=== PATIENT | female | born 1945 | race Caucasian/White ===

== ENCOUNTER 2021-04-03 20:13 | Observation (INO) | payer MEDICARE, SELFPAY ==
[2021-04-03 20:17] VITALS: BP 157/78; PULSE 65; RESP 18; TEMP 36.8; O2SAT 95; BMI 38.2
--- NOTE | 2021-04-03 20:19 | XR_ITS ---
PROCEDURE INFORMATION: Exam: XR Right Femur Exam date and time: 04/03/2021 8:19 PM Age: 75 years old Clinical indication: Injury or trauma; Fall; Blunt trauma; Thigh or upper leg; Right; Injury date: 04/03/2021; Additional info: Fall, hip pain right TECHNIQUE: Imaging protocol: XR Right femur. Views: 2 views. COMPARISON: CR XR HIP RT 2-3V W/PELVIS 04/03/2021 8:37 PM FINDINGS: Bones/joints: There is a nondisplaced lateral oblique fracture of the proximal metaphysis and diaphysis of the right femur. Right femoral head and neck appear intact. There is degenerative changes noted within the knee joint space. Osteopenia of visualized bones is evident. Soft tissues: There is dystrophic calcification noted along the course of the right common and superficial femoral artery and popliteal artery. No overlying soft tissue swelling. IMPRESSION: Nondisplaced lateral oblique fracture of the proximal metaphysis and diaphysis of the right femur.
--- NOTE | 2021-04-03 20:19 | XR_ITS ---
PROCEDURE INFORMATION: Exam: XR Right Hip Exam date and time: 04/03/2021 8:19 PM Age: 75 years old Clinical indication: Injury or trauma; Fall; Blunt trauma (contusions or hematomas); Right; Hip; Injury date: 04/03/2021; Additional info: Fall, hip painright TECHNIQUE: Imaging protocol: XR Right hip. Views: 2 or 3 views hip with pelvis when performed. COMPARISON: CR XR PELVIS 1-2V 04/03/2021 8:34 PM FINDINGS: Bones/joints: There is a nondisplaced fracture of the lateral cortical margin of the proximal metaphysis and diaphysis of the right femur. Right femoral head and neck appear intact. There is degenerative change and narrowing of the right hip joint space. Soft tissues: Dystrophic calcification along the course of the right common femoral artery. IMPRESSION: Nondisplaced fracture of the proximal right femur, as described.
--- NOTE | 2021-04-03 20:19 | XR_ITS ---
PROCEDURE INFORMATION: Exam: XR Pelvis Exam date and time: 04/03/2021 8:19 PM Age: 75 years old Clinical indication: Injury or trauma; Fall; Blunt trauma (contusions or hematomas); Right; Hip; Injury date: 04/03/2021; Additional info: Fall, hip pain right TECHNIQUE: Imaging protocol: XR pelvis. Views: 1 or 2 view. COMPARISON: No relevant prior studies available. FINDINGS: Bones/joints: There is a lucent line projecting within the proximal metaphysis and diaphysis of the right femur, suggesting a nondisplaced fracture. There is narrowing of the hip joint spaces compatible with osteoarthritis. Prominent degenerative changes of the lower lumbar spine are evident. No evidence of pelvic fracture. Soft tissues: Dystrophic calcification within the aorta, iliac, and common femoral arteries. There is a clip identified within the left hemipelvis, etiology unknown. Prominent fecal retention noted within the right colon. IMPRESSION: Findings suggest the presence of a nondisplaced fracture of the proximal metaphysis and diaphysis of the right femur.
--- NOTE | 2021-04-03 20:20 | HMH.EDGENADL ---
ED Disposition Clinical Impression: Right femoral fracture Qualifiers: Encounter type: initial encounter Femur location: shaft Fracture type: closed Fracture morphology: transverse Fracture alignment: nondisplaced Qualified Code(s): S72.324A - Nondisplaced transverse fracture of shaft of right femur, initial encounter for closed fracture Disposition: Admitted As Inpatient Condition on Discharge: Fair Time of Disposition: 23:00 - Critical Care Critical Care Time: No Attestation: On , the high probability of a clinically significant, sudden or life threatening deterioration of the following system(s) required my full and direct attention, intervention and personal management. The time I documented below is in addition to time spent performing reported procedures but includes the following listed in this critical care notation. Medical Decision Making - Medical Records Medical records reviewed: Yes: I reviewed the patient's medical records. - [place] Inquiry Pt receiving controlled substance: No Vital Signs: 04/03/21 20:17 04/03/21 21:30 04/04/21 00:38 Temperature 98.2 F 98.2 F Temperature Source Oral Oral Pulse Rate 65 75 Pulse Rate [Left] 65 Respiratory Rate 18 18 18 Blood Pressure 135/58 L 132/75 Blood Pressure [Right Arm] 157/78 H Blood Pressure Mean 83 Blood Pressure Mean [Right Arm] 104 Blood Pressure Source Automatic Cuff Blood Pressure Position Sitting 02 Sat by Pulse Oximetry 95 89 L Oxygen Delivery Method Room Air Room Air - Lab Data Lab Results 04/03/21 23:24: WBC 10.9 H, RBC 4.47, Hgb 13.1, Hct 41.9, MCV 93.7, MCH 29.2, MCHC 31.2 L, RDW 14.5, Plt Count 173, MPV 9.4, Neut % (Auto) 74.3, Lymph % (Auto) 19.1, [place] % (Auto) 5.6, Eos % (Auto) 0.6, Baso % (Auto) 0.5, Neut # (Auto) 8.1 H, Lymph # (Auto) 2.1, [place] # (Auto) 0.6, Eos # (Auto) 0.1, Baso # (Auto) 0.1 04/03/21 23:24: PT 10.7, INR 0.94, APTT 28.7 04/03/21 23:24: Sodium 139, Potassium 4.0, Chloride 103, Carbon Dioxide 30, Anion Gap 10.0, BUN 25 H, Creatinine 1.60 H, Estimated Creat Clear 51, Estimated GFR 32 L, Est GFR ( Amer) 38 L, Glucose 99, Calcium 8.5, Total Bilirubin 0.3, AST 26, ALT 19, Alkaline Phosphatase 115, Total Protein 6.7, Albumin 3.7, Globulin 3.0, Albumin/Globulin Ratio 1.2 04/03/21 23:24: SARS-CoV-2 (PCR) Not detected, Influenza A Untype (PCR) Not detected, Influenza Type B (PCR) Not detected Result diagrams: 04/03/21 23:24 04/03/21 23:24 Orders (Tests/Meds): ED MEDICATIONS Generic Name Dose Route Start Last Admin Trade Name Freq PRN Reason Stop Dose Admin Fentanyl Citrate 25 mcg 04/04/21 00:41 Fentanyl 100mcg/2ml Vial IV 04/04/21 00:42 ONCE ONE Methocarbamol 500 mg 04/04/21 22:45 Methocarbamol 500mg Tablet PO 04/04/21 22:46 ONCE ONE Discontinued Medications Generic Name Dose Route Start Last Admin Trade Name Freq PRN Reason Stop Dose Admin Fentanyl Citrate 50 mcg 04/03/21 21:05 04/03/21 21:08 Fentanyl 250mcg/5ml Vial IV 04/03/21 21:06 50 mcg ONCE ONE Administration Fentanyl Citrate 25 mcg 04/03/21 22:52 04/03/21 22:53 Fentanyl 250mcg/5ml Vial IV 04/03/21 22:53 25 mcg ONCE ONE Administration Methocarbamol 500 mg 04/04/21 22:45 Methocarbamol 500mg Tablet PO 04/04/21 22:46 ONCE ONE Ondansetron HCl 4 mg 04/03/21 21:06 04/03/21 21:08 Ondansetron 4mg/2ml Vial IV 04/03/21 21:07 4 mg ONCE ONE Administration ORDERS Category Date Time Status ECG Request by /Nse Stat Y 04/03/21 22:24 Stop Req Medical Decision Narrative: In summary this is a 75-year-old female presenting to the emergency department with right hip pain after a fall. Patient clinically stable on arrival. Vital signs within normal limits. She is conversational. Her pain is worse when she tries to move. Concern for right hip fracture, pelvic fracture, femur fracture. Will obtain x-rays of the pelvis, right hip, right femur. Even 50 mcg of fe
[2021-04-03 21:30] VITALS: BP 135/58; PULSE 65; RESP 18; O2SAT 89
--- NOTE | 2021-04-03 22:24 | XR_ITS ---
PROCEDURE INFORMATION: Exam: XR Chest Exam date and time: 04/03/2021 10:24 PM Age: 75 years old Clinical indication: Injury or trauma; Fall; Sprain or strain; Injury date: 04/03/2021; Additional info: Fall FX hip PT to be admitted to hospital possible hip surgery TECHNIQUE: Imaging protocol: XR of the chest. Views: 1 view. COMPARISON: No relevant prior studies available. FINDINGS: Limited inspiration and penetration of the chest with obese body habitus. Lordotic projection presented. Lungs: Chronic parenchymal changes identified. No consolidation. Pleural spaces: Unremarkable. No pleural effusion. No pneumothorax. Heart/Mediastinum: Unremarkable. No cardiomegaly. Bones/joints: Unremarkable. IMPRESSION: No acute findings.
--- NOTE | 2021-04-03 22:28 | CT_ITS ---
PROCEDURE INFORMATION: Exam: CT Right Lower Extremity Without Contrast; Thigh Exam date and time: 04/03/2021 10:28 PM Age: 75 years old Clinical indication: Injury or trauma; Fall; Blunt trauma; Thigh or upper leg; Right; Injury date: 04/03/2021; Additional info: Fall, femur fracture TECHNIQUE: Imaging protocol: CT of the Right lower extremity without contrast was performed. Exam focused on the thigh. 3D rendering (Not supervised by radiologist): MIP and/or 3D reconstructed images were created by the technologist. Radiation optimization: All CT scans at this facility use at least one of these dose optimization techniques: automated exposure control; mA and/or kV adjustment per patient size (includes targeted exams where dose is matched to clinical indication); or iterative reconstruction. COMPARISON: CR XR FEMUR RT 2V 04/03/2021 8:38 PM FINDINGS: Bones/joints: There is an incomplete nondisplaced fracture along the posterior and lateral aspect of the cortex of the proximal metaphysis and diaphysis of the right femur. Anterior and medial cortex remains intact. No evidence of femoral neck fracture. The femoral head appears unremarkable. Soft tissues: Overlying musculature and subcutaneous soft tissues are unremarkable. IMPRESSION: There is an incomplete nondisplaced fracture along the posterolateral aspect of the cortex of the proximal metaphysis and diaphysis of the right femur. No overlying soft tissue abnormality.
--- NOTE | 2021-04-03 22:38 | PC.NURSE ---
spoke with dr hawk and dr horner for admit. both agree. brother updated and allowed to come see patient in room. call placed to retail warehouse associate for bed assignment.
--- NOTE | 2021-04-03 23:18 | PC.NURSE ---
pt return from ct via stretcher and tech
[2021-04-03 23:38] LABS: Coronavirus 19, PCR Not Detected (NotDetected); Influenza A, PCR Not Detected (NotDetected); Influenza B, PCR Not Detected (NotDetected)
[2021-04-03 23:42] LABS: Basophils # 0.1 K/mm3 (0-0.2); Basophils % 0.5 % (0.1-2.0); Eosinophils # 0.1 K/mm3 (0.0-0.4); Eosinophils % 0.6 % (0.1-12.0); Hematocrit 41.9 % (37.0-47.0); Hemoglobin 13.1 g/dL (12.2-16.2); Lymphocytes # 2.1 K/mm3 (0.7-4.5); Lymphocytes % 19.1 % (10-50); Mean Corpuscular HGB Conc 31.2 g/dL (31.8-35.4); Mean Corpuscular Hemoglobin 29.2 pg (27.0-31.2); Mean Corpuscular Volume 93.7 fl (81-99); Mean Platelet Volume 9.4 fl (7.4-10.4); Monocytes # 0.6 K/mm3 (0.1-1.0); Monocytes % 5.6 % (1.7-9.3); Neutrophils # 8.1 K/mm3 (1.8-7.8); Neutrophils % 74.3 % (37.0-80.0); Platelet Count 173 K/mm3 (142-424); Red Blood Count 4.47 M/mm3 (4.20-5.40); Red Cell Distribution Width 14.5 % (11.5-17.5); White Blood Count 10.9 K/mm3 (4.8-10.8)
[2021-04-03 23:47] LABS: Alanine Aminotransferase 19 U/L (12-78); Albumin Level 3.7 g/dl (3.5-5.0); Albumin/Globulin Ratio 1.2 (1.1-1.8); Alkaline Phosphatase 115 U/L (38-126); Aspartate Amino Transferase 26 U/L (14-36); Bilirubin,Total 0.3 mg/dl (0.2-1.3); Blood Urea Nitrogen 25 mg/dl (7-17); Calcium 8.5 mg/dl (8.4-10.2); Carbon Dioxide 30 mmol/L (22.0-30.0); Chloride 103 mmol/L (98-107); Creatinine Clearance Estimated 51 mL/min (50-200); Estimated Glomerular Filt Rate 32 ml/min (>60); GFR (African American) 38 ML/MIN (>60); Glucose 99 mg/dl (74-100); Sodium 139 mmol/L (136-145); Total Protein,Serum 6.7 g/dl (6.3-8.2)
[2021-04-03 23:49] LABS: Activated Partial Thrombo Time 28.7 seconds (22.8-30.6); INR 0.94 (0.9-1.1); Prothrombin Time 10.7 seconds (10.1-12.5)
[2021-04-04] VITALS (30 sets, daily range): BP systolic 101–169; BP diastolic 45–97; PULSE 56–87; RESP 14–20; TEMP 36.5–43; O2SAT 90–98; BMI 38.7
--- NOTE | 2021-04-04 00:53 | PC.NURSE ---
PT ARRIVED TO FLOOR @ 0054 VIA STRETCHER
--- NOTE | 2021-04-04 03:16 | PC.NURSE ---
No acute changes t/o shift. Pt has rested well. Remains on 2L NC while sleeping, states that is what she wears at home at night. VSS, call light within reach, will continue to monitor.
--- NOTE | 2021-04-04 06:08 | HMH.ANESCL ---
[facility] Anesthesia Checklist - Patient Identification Patient Identification: Arm Band - Structural Data Admitted From: Inpatient Planned Operative Procedure/s: Gamma nail Consent for Planned Operative Procedure(s) Verified: Yes - NPO Status Verified Time NPO: 00:00 - Airway Assessment C-Spine Mobility Assessed: Yes TMJ Mobility Assessed: Yes Dentition: Edentulous - Neurological Assessment Level of Consciousness: Awake Hx Seizures: No Numbness or tingling in extremities: No - Anesthesia Plan Anesthesia Risk discussed: Yes Anesthesia Plan: Verified ASA Class: III Anesthesia Type: General [facility] History I have reviewed the patient's past medical history: Yes Medical History: Reports:: Cancer (Uterine), Hypertension Denies:: Diabetes Mellitus Type 1, Diabetes Mellitus Type 2 *Have you ever received a pneumonia vaccine?: Yes *Have you received a flu vaccine this season?: No Other Medical History: Reports: Other (Lung mass) Anesthesia experience/problems:: None Laterality Cases: Left: Partial Knee Replacement, Bilateral: Tonsillectomy Other Surgeries: Yes: Cardiac Catheterization, Cholecystectomy, Hysterectomy-Total Amputation: No Fractures: No - *Social History Last grade of school completed: Advanced degree Smoking Status: Current every day smoker Tobacco Type: cigarettes # Packs/Day (cigarettes): 1 Alcohol Intake: never Substance Use Type: denies use *Occupational Status:: retired Housing: house *Travel in the last 8 weeks: None Family Hx:: No significant family history
--- NOTE | 2021-04-04 06:12 | HMH.ORTHOCON ---
*Admission Date: 04/03/21 *Reason for consult:: Right femur fracture *History of present illness: 75-year-old female with no history of antecedent hip pain, fever, constitutional symptoms, or weight change, fell down 2 stairs, complained of right hip pain and difficulty ambulating. Radiographs and subsequent CT scan demonstrated minimally displaced intertrochanteric femur fracture with extension distal to the lesser trochanter and the lateral cortex. There were no lucent lesions apparent on CT scan. She was admitted, made n.p.o. 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 [facility] History Medical History: Reports:: Cancer (Uterine), Hypertension Denies:: Diabetes Mellitus Type 1, Diabetes Mellitus Type 2, Seizures *Have you ever received a pneumonia vaccine?: Yes *Have you received a flu vaccine this season?: No Other Medical History: Reports: Other (Lung mass) Anesthesia experience/problems:: None Laterality Cases: Left: Partial Knee Replacement, Bilateral: Tonsillectomy Other Surgeries: Yes: Cardiac Catheterization, Cholecystectomy, Hysterectomy-Total Amputation: No Fractures: No - *Social History Last grade of school completed: Advanced degree Smoking Status: Current every day smoker Tobacco Type: cigarettes # Packs/Day (cigarettes): 1 Alcohol Intake: never *Occupational Status:: retired Housing: house *Travel in the last 8 weeks: None Family Hx:: No significant family history Review of Systems - Constitutional Denies anorexia, Denies body ache(s), Denies chills, Denies fatigue, Denies fever(s), Denies lack of energy, Denies night sweats, Denies weight gain, Denies weight loss - Eyes Denies loss of vision - ENT Denies abnormal hearing, Denies poor balance, Denies dizziness - *Cardiovascular Denies chest pain, Denies shortness of breath, Denies generalized swelling - *Respiratory Denies chest congestion, Denies cough, Denies shortness of breath - *Gastrointestinal Denies abdominal pain, Denies change in bowel habits - *Genitourinary Denies difficulty urinating, Denies painful urination - *Musculoskeletal Denies abnormal walking Comments: No antecedent right hip pain - *Neurologic Reports abnormal walking, Denies numbness, Denies tingling, Denies weakness Meds Home Medications Medication Instructions Recorded Confirmed Type Amlodipine Besylate [Norvasc 5mg 5 mg PO DAILY 04/03/21 04/03/21 History tablet] Cyanocobalamin (Vitamin B-12) 1,000 mcg IM MONTHLY 04/03/21 04/03/21 History [Cyanocobalamin 1,000mcg/mL Vial] Duloxetine HCl [Cymbalta] 20 mg PO DAILY 04/03/21 04/03/21 History Fluticasone/Vilanterol [Breo 1 puff IH DAILY 04/03/21 04/03/21 History Ellipta 200-25 Mcg INH] Gabapentin [Neurontin 300mg 300 mg PO HS 04/03/21 04/03/21 History capsule] Ipratropium/Albuterol Sulfate 3 ml IH DAILY 04/03/21 04/03/21 History [Iprat-Albut 0.5-3(2.5) mg/3 ml] Montelukast Sodium [Singulair 10mg 10 mg PO PM 04/03/21 04/03/21 History tablet] Oxybutynin Chloride 5 mg PO DAILY 04/03/21 04/03/21 History Tizanidine HCl [Zanaflex 4mg 4 mg PO HS PRN 04/03/21 04/03/21 History tab] bisoproloL fumarate [Bisoprolol 5 mg PO DAILY 04/03/21 04/03/21 History Fumarate] Allergies Allergy/AdvReac Type Severity Reaction Status Date / Time morphine Allergy Severe Hives Verified 04/03/21 20:38 naproxen Allergy Verified 04/04/21 01:45 Penicillins Allergy Verified 04/04/21 01:45 Exam Vital signs and Labs for Last 24 Hours: Temp Pulse Resp BP Pulse Ox 98 F 59 L 19 125/60 96 04/04/21 04:16 04/04/21 04:16 04/04/21 04:16 04/04/21 04:16 04/04/21 04:16 Laboratory Results - last 24 hr 04/03/21 23:24: WBC 10.9 H, RBC 4.47, Hgb 13.1, Hct 41.9, MCV 93.7, MCH 29.
--- NOTE | 2021-04-04 06:20 | PC.NURSE ---
PT'S UPPER AND LOWER DENTURES, PURSE, FOUR RINGS, AND CELL PHONE LOCKED IN NUCLEAR WASTE PROCESS OPERATOR PT'S ROOM AT THIS TIME, WAITING TO BE TAKEN DOWN TO SURGERY.
--- NOTE | 2021-04-04 06:35 | PC.NURSE ---
PT IS LEAVING OFF FLOOR VIA BED WITH OR STAFF @ [id number]
--- NOTE | 2021-04-04 07:44 | PC.NURSE ---
Received report on pt this am at 0700, she is still off floor in surgery at this time.
--- NOTE | 2021-04-04 08:05 | XR_ITS ---
PROCEDURE: XR HIP RT 2-3V W/PELVIS CLINICAL INDICATION: RT HIP NAILING In OR COMPARISON: CT CT FEMUR RT WO CON from 04/03/2021 FINDINGS: Intraoperative fluoroscopic images were submitted from orthopedic internal fixation of right femur fracture. IMPRESSION: Intraoperative fluoroscopic images from orthopedic internal fixation of right femur fracture. Dictated by: Adalgisa Malcolm MD 04/06/2021 08:18 Adalgisa Malcolm MD in OV 04/06/2021 08:18
--- NOTE | 2021-04-04 08:09 | HMH.OPNOTE ---
Date of procedure: 04/04/21 Pre-op Diagnosis:: Right intertrochanteric femur fracture Post-op Diagnosis:: Same Procedure performed:: Right femur cephalomedullary nail fixation [id number] Surgeon:: Caleb Erazo JR, MD Anesthesia: GETA Estimated blood loss (mL): 50 Operative findings:: Appropriate implant placement with no fracture extending past the tip of the nail Operative note:: 75-year-old female sustained a right intertrochanteric femur fracture with lateral cortical extension just distal to the lesser trochanter. She had no fever or constitutional symptoms, no weight loss or weight gain, no antecedent hip pain. Fracture was sustained as a result of a fall downstairs. She did have incidentally noted lung mass which had been monitored and had not changed over the past [address] scan demonstrated minimally displaced fracture, no lucency concerning for pathologic fracture. I had a discussion with her regarding further management, recommended cephalomedullary nail fixation of her right femur fracture. She was amenable with the plan. We discussed the risk and benefits of surgery. Risks included but were not limited to pain, bleeding, infection, damage to adjacent structures, need for further surgery, wound healing complications, loss of limb, . Patient expressed verbal consent and written consent was obtained for the above procedure. Patient was identified in preoperative holding. Operative site was marked in indelible ink. History, physical, consent were reviewed and updated. Patient was surrendered to the anesthesia team, taken to the operative suite, placed supine on a well-padded operative table. Is placed on the fracture table. Anesthesia was induced. The operative extremity was prepped and draped in the usual sterile fashion. The operative team donned sterile gowns and gloves and a timeout was called. All in attendance agreed regarding the patient's identity, procedure, operative site. Weight-based dose of antibiotics was given prior to incision. I percutaneously placed a guidewire, confirm*point, advanced this and overreamed. I placed a guidewire, and with no power to ream, noted that I could easily pass a 13.5 mm reamer down the femoral shaft. I then placed a 200 mm x 12 mm gamma nail into appropriate position, placed a guidewire through the aiming arm into the center center position of the femoral head. I overreamed, placed a 95 mm cephalomedullary screw which I secured with a locking screw proximally. Then using the aiming guide, I placed a single interlocking screw in the static hole distally. I removed the aiming arm and orthogonal fluoroscopic views demonstrated safe intraosseous hardware placement. I sent a specimen to pathology to evaluate for any pathologic changes of the cancellous bone that I obtained with the opening reamer. Wounds were closed in anatomic layers. Sterile dressings applied. Counts were correct x2. There were no apparent complications. I was present and scrubbed for the entire case. Condition: stable Disposition: PACU Complications:: None apparent
--- NOTE | 2021-04-04 08:17 | HMH.ANESI ---
[facility] Anesthesia Record Part I Intake, IV Amount: 800 Estimated blood loss (mL): 50 Urine output (mL): 0 Blood Pressure: 113/60 SaO2: 95 Pulse Rate: 74 Respiratory Rate: 18 Temperature: 98.5 F Patient is:: Drowsy, Oral/Nasal airway Stable to PACU at:: 08:16
--- NOTE | 2021-04-04 08:22 | XR_ITS ---
PROCEDURE INFORMATION: Exam: XR Right Hip Exam date and time: 04/04/2021 8:22 AM Age: 75 years old Clinical indication: Screening exam; Post op pics; Prior surgery; Surgery date: Post-operative (0-2 days); Surgery type: Femur/hip nail; Patient HX: Had a fall and fracture hip yesterday post op films; Additional info: S/P right cephalomedullary nail fixation TECHNIQUE: Imaging protocol: XR Right hip. Views: 2 or 3 views hip with pelvis when performed. COMPARISON: XA XR HIP RT 2-3V W/PELVIS 04/04/2021 5:29 AM FINDINGS: Bones/joints: There is a compression screw in the right hip. Fracture fragments are held in good position. No evidence of complication. Soft tissues: Unremarkable. IMPRESSION: Normal postoperative examination.
--- NOTE | 2021-04-04 09:13 | HMH.PHAVTE ---
[facility] Pharmacy VTE Monitoring - Patient Demographics Allergies/Adverse Reactions: Patient Allergies morphine Allergy (Severe, Verified 04/03/21 20:38) Hives naproxen Allergy (Verified 04/04/21 01:45) Penicillins Allergy (Verified 04/04/21 01:45) Height: 1.65 m Weight: 105.37 kg Patient Problems: Current Active Problems Right femoral fracture (Acute) - VTE Risk Labs: VTE Related Lab Results Hgb 13.1 g/dL (12.2-16.2) 04/03/21 23:24 Hct 41.9 % (37.0-47.0) 04/03/21 23:24 Plt Count 173 K/mm3 (142-424) 04/03/21 23:24 PT 10.7 seconds (10.1-12.5) 04/03/21 23:24 INR 0.94 (0.9-1.1) 04/03/21 23:24 APTT 28.7 seconds (22.8-30.6) 04/03/21 23:24 BUN 25 mg/dl (7-17) H 04/03/21 23:24 Creatinine 1.60 mg/dl (0.52-1.04) H 04/03/21 23:24 Estimated Creat Clear 51 mL/min (50-200) 04/03/21 23:24 Was VTE Risk Assessment Performed: Yes VTE Score: 7 VTE Risk Level: Moderate Risk Clinical Trial Participant: No - Prophylaxis VTE Prophylaxis Ordered?: Yes Types of VTE Prophylaxis: Pharmacological Pharmacologic Type: Enoxaparin
--- NOTE | 2021-04-04 11:32 | PC.NURSE ---
Spoke with Dr. Villalpando when rounding in RE to crackles throughout lung garcia. Decreased IVF's to 50 ml/hr.
--- NOTE | 2021-04-04 12:03 | HMH.HP ---
*Admission Date: 04/03/21 *Chief complaint: femur fracture *History of present illness: Patient is a very pleasant 75-year-old white female who was admitted through the emergency room last night. She was a guest at a wedding, stained a fall with a fracture to her right femur. 75-year-old female with no history of antecedent hip pain, fever, constitutional symptoms, or weight change, fell down 2 stairs, complained of right hip pain and difficulty ambulating. Radiographs and subsequent CT scan demonstrated minimally displaced intertrochanteric femur fracture with extension distal to the lesser trochanter and the lateral cortex. There were no lucent lesions apparent on CT scan. She was admitted, made n.p.o. 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 Patient went to the operating room earlier this morning. Op note is reviewed. Has satisfactory analgesia and normal mentation. 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 She is having no respiratory symptoms, no chest pain. [facility] History Medical History: Reports:: Cancer (Uterine), Hypertension Denies:: Diabetes Mellitus Type 1, Diabetes Mellitus Type 2, Seizures *Have you ever received a pneumonia vaccine?: Yes *Have you received a flu vaccine this season?: No Other Medical History: Reports: Other (Lung mass) Anesthesia experience/problems:: None Laterality Cases: Left: Partial Knee Replacement, Bilateral: Tonsillectomy Other Surgeries: Yes: Cardiac Catheterization, Cholecystectomy, Hysterectomy-Total Amputation: No Fractures: No - *Social History Last grade of school completed: Advanced degree Smoking Status: Current every day smoker Tobacco Type: cigarettes # Packs/Day (cigarettes): 1 Alcohol Intake: never Substance Use Type: denies use *Occupational Status:: retired Housing: house *Travel in the last 8 weeks: None Family Hx:: No significant family history Review of Systems - Constitutional Denies fever(s), Denies weight loss - Eyes Denies change in vision - ENT Denies abnormal hearing - *Cardiovascular Denies chest pain - *Respiratory Denies chest congestion, Denies coughing up blood - *Gastrointestinal Denies abdominal pain - *Genitourinary Denies painful urination - *Musculoskeletal Reports abnormal walking, Reports joint pain - Integumentary/Breasts Denies yellowing of the skin - *Neurologic Denies abnormal walking, Denies abnormal hearing, Denies unsteadiness, Denies dizziness, Denies loss of vision, Denies numbness, Denies tingling, Denies weakness - Psychiatric Denies behavioral changes - Endocrine Denies cold intolerance - Hematologic/Lymphatic Denies easy bleeding, Denies easy bruising - Allergic/Immunologic Denies hives Meds Home Medications Medication Instructions Recorded Confirmed Type Amlodipine Besylate [Norvasc 5mg 5 mg PO DAILY 04/03/21 04/03/21 History tablet] Cyanocobalamin (Vitamin B-12) 1,000 mcg IM MONTHLY 04/03/21 04/03/21 History [Cyanocobalamin 1,000mcg/mL Vial] Duloxetine HCl [Cymbalta] 20 mg PO DAILY 04/03/21 04/03/21 History Gabapentin [Neurontin 300mg 600 mg PO HS 04/03/21 04/04/21 History capsule] Ipratropium/Albuterol Sulfate 3 ml IH QIDP PRN 04/03/21 04/04/21 History [Iprat-Albut 0.5-3(2.5) mg/3 ml] Montelukast Sodium [Singulair 10mg 10 mg PO PM 04/03/21 04/03/21 History tablet] Oxybutynin Chloride 5 mg PO BID 04/03/21 04/04/21 History Tizanidine HCl [Zanaflex 4mg 4 mg PO HS PRN 04/03/21 04/03/21 History tab] bisoproloL fumarate [Bisoprolol 5 mg PO DAILY 04/03/21 04/03/21 History Fumarate] Fluticasone Propion/Salmeterol 1 puff INHALATION BID 04/04/21 04/04/21 History [Fluticasone-Salmetero
--- NOTE | 2021-04-04 12:55 | HMH.PHAINT ---
MEDICATION RECONCILIATION COMPLETE USING EXTERNAL PHARMACY FILL HISTORY AND PATIENT INTERVIEW (VIA NURSE).
--- NOTE | 2021-04-04 13:19 | HMH.PTEV ---
Physical Therapy Evaluation Rehab PT IP Evaluation Start: 04/04/21 08:18 Freq: ONCE Status: Active Protocol: Document 04/04/21 12:57 [email or web address] (Rec: 04/04/21 13:18 [email or web address] [id number]) Subjective/History History History Pt. is a 75 year old female who presents to [facility] w/ c/o acute and constant post- surgical RLE hip P! S/P right femur cephalomedullary nail fixation on 04/04/21. Pt. reports attending a wedding yesterday(04/03/21), and was being assisted up 3 stairs onto a porch where she ended up falling, stated not remembering anything after that. Pt. reports not having much RLE hip P! at rest, but noted symptoms jumped to a 9/ 10 w/ activity. Pt. reports she lives alone in a 1-story home, owns a FWW and a SPC where she would don PRN w/ ambulation. Pt. also reports having a walk-in/shower chair in her home. Pt. also reports having a few steps to enter into her home. However, pt. reports she wouldn't have any assistance @ home because everyone is working. Pt. reported wanting to go to [facility] for rehab. after departing [facility] secondary to having high success w/ her TKA at [facility]. PMH includes Hypertension, history of Uterine Cancer, Cardiac Catheterization, Cholecystectomy, and a Hysterectomy-Total Subjective Subjective Pt. was asleep and supine in hoptal bed w/ brother(Ed) seated in hospital chair upon entry into room. Pt. was left sitting upright in hospital chair w/ call light in reach and nurse in room upon exiting pt.'s room. Pt. reports, it's feeling
--- NOTE | 2021-04-04 13:19 | HMH.PTEV ---
Physical Therapy Evaluation Rehab PT IP Evaluation Start: 04/04/21 08:18 Freq: ONCE Status: Active Protocol: Document 04/04/21 12:57 [email or web address] (Rec: 04/04/21 13:18 [email or web address] [id number]) Subjective/History History History Pt. is a 75 year old female who presents to [facility] w/ c/o acute and constant post- surgical RLE hip P! S/P right femur cephalomedullary nail fixation on 04/04/21. Pt. reports attending a wedding yesterday(04/03/21), and was being assisted up 3 stairs onto a porch where she ended up falling, stated not remembering anything after that. Pt. reports not having much RLE hip P! at rest, but noted symptoms jumped to a 9/ 10 w/ activity. Pt. reports she lives alone in a 1-story home, owns a FWW and a SPC where she would don PRN w/ ambulation. Pt. also reports having a walk-in/shower chair in her home. Pt. also reports having a few steps to enter into her home. However, pt. reports she wouldn't have any assistance @ home because everyone is working. Pt. reported wanting to go to [facility] for rehab. after departing [facility] secondary to having high success w/ her TKA at [facility]. PMH includes Hypertension, history of Uterine Cancer, Cardiac Catheterization, Cholecystectomy, and a Hysterectomy-Total Subjective Subjective Pt. was asleep and supine in hoptal bed w/ brother(Ed) seated in hospital chair upon entry into room. Pt. was left sitting upright in hospital chair w/ call light in reach and nurse in room upon exiting pt.'s room. Pt. reports, it's feeling
--- NOTE | 2021-04-04 20:20 | PC.NURSE ---
Pt has done well postoperatively. She states at this time her pain is 0. Earlier she stated it was with movement. Pt did get up to chair this shift. VSS. Remains on 3 L NC. Did call and get an order for Dilaudid prn per aug and d/c morphine as pt states she has an allergy to it. Pt also refused po pain medication. VSS. CB in reach. Dsg is cdi to R hip with fresh ice pack in place.
[2021-04-05] VITALS (10 sets, daily range): BP systolic 111–129; BP diastolic 40–78; PULSE 60–74; RESP 17–18; TEMP 36.6–37.3; O2SAT 84–96; BMI 39.3
--- NOTE | 2021-04-05 03:23 | PC.NURSE ---
A&OX4. TOLERATING 2LNC WELL. PT HAS HAD NO C/O THUS FAR. ONLY HAS SLIGHT PAIN WHEN TURNING TO GET ON BED [place]. TOLERATES WELL. DRESSING TO R LEG CDI, REINFORCED X1. HAS GOOD APPETITE. VSS WILL CONTINUE TO MONITOR.
--- NOTE | 2021-04-05 05:52 | HMH.ORTHPN ---
Subjective Date: 04/05/21 Time: 05:52 Interval history: Pain improved, no fever, constitutional symptoms, chest pain, shortness of breath. PN: Obj Ex Vital signs: Temp Pulse Resp BP Pulse Ox 98.1 F 69 18 120/53 L 91 L 04/05/21 03:26 04/05/21 03:26 04/05/21 03:26 04/05/21 03:26 04/05/21 03:26 - Constitutional no acute distress - Routine Respiratory Exam Absent: respiratory distress, distant breath sounds - Routine Cardiovascular Exam Present: RRR - Detailed Lower Extremity Exam Hip: Right normal inspection (Dressing clean, dry, intact. Distally neurovascularly intact.) Progress Note: A&P (1) Right femoral fracture Status: Acute Assessment and plan: 75-year-old female status post cephalomedullary nail fixation right intertrochanteric femur fracture. Weight bearing as tolerated right lower extremity. PT/OT. 23 hours antibiotics. DVT prophylaxis: Lovenox 30 mg twice daily for 4 weeks. Okay for discharge from surgical perspective once meets medical criteria. Will follow. (2) COPD (chronic obstructive pulmonary disease) Status: Chronic (3) Lung mass Status: Chronic
--- NOTE | 2021-04-05 06:00 | XR_ITS ---
PROCEDURE INFORMATION: Exam: XR Chest Exam date and time: 04/05/2021 6:00 AM Age: 75 years old Clinical indication: Other: Copd; Additional info: Copd post op hip pinning 04/04/2021 TECHNIQUE: Imaging protocol: XR of the chest. Views: 1 view. COMPARISON: CR XR CHEST PORTABLE 04/03/2021 11:06 PM FINDINGS: Lungs: The lungs are hyperinflated. Pleural spaces: Unremarkable. No pleural effusion. No pneumothorax. Heart/Mediastinum: Unremarkable. No cardiomegaly. Vasculature: Tortuosity of the aorta is seen. Bones/joints: Unremarkable. IMPRESSION: COPD. No acute change.
[2021-04-05 06:39] LABS: Basophils % 0.1 % (0.1-2.0); Hematocrit 35.6 % (37.0-47.0); Hemoglobin 11.3 g/dL (12.2-16.2); Lymphocytes # 1.1 K/mm3 (0.7-4.5); Lymphocytes % 11.7 % (10-50); Mean Corpuscular HGB Conc 31.8 g/dL (31.8-35.4); Mean Corpuscular Hemoglobin 29.6 pg (27.0-31.2); Mean Corpuscular Volume 93.1 fl (81-99); Mean Platelet Volume 9.6 fl (7.4-10.4); Monocytes # 0.6 K/mm3 (0.1-1.0); Monocytes % 6.6 % (1.7-9.3); Neutrophils # 7.7 K/mm3 (1.8-7.8); Neutrophils % 81.5 % (37.0-80.0); Platelet Count 149 K/mm3 (142-424); Red Blood Count 3.82 M/mm3 (4.20-5.40); Red Cell Distribution Width 14.6 % (11.5-17.5); White Blood Count 9.5 K/mm3 (4.8-10.8)
[2021-04-05 06:46] LABS: Chloride 105 mmol/L (98-107); Sodium 139 mmol/L (136-145)
[2021-04-05 06:47] LABS: Potassium 4.4 mmoL/L (3.5-5.1)
[2021-04-05 06:49] LABS: Alanine Aminotransferase 16 U/L (12-78); Albumin Level 3.3 g/dl (3.5-5.0); Albumin/Globulin Ratio 1.3 (1.1-1.8); Alkaline Phosphatase 94 U/L (38-126); Anion Gap 10.4 mEq/L (5-15); Aspartate Amino Transferase 24 U/L (14-36); Bilirubin,Total 0.2 mg/dl (0.2-1.3); Blood Urea Nitrogen 26 mg/dl (7-17); Carbon Dioxide 28 mmol/L (22.0-30.0); Creatinine Clearance Estimated 83 mL/min (50-200); Estimated Glomerular Filt Rate 54 ml/min (>60); GFR (African American) 66 ML/MIN (>60); Globulin 2.6 g/dL (1.3-3.2); Total Protein,Serum 5.9 g/dl (6.3-8.2)
[2021-04-05 06:50] LABS: Calcium 8.6 mg/dl (8.4-10.2); Glucose 124 mg/dl (74-100)
--- NOTE | 2021-04-05 07:07 | P.PN_ITS ---
[facility] Anesthesia Record Part II Discharge Time: 09:23 Destination: Second Floor PACU nurse assessment reviewed?: Yes Patient Condition:: Good Anesthesia Complications:: None Swallowing reflex intact?: Yes Cyanosis?: No Blood Pressure: 121/67 Pulse Rate: 64 Temperature: 99.1 F Mental Status: Alert & Oriented Pain level:: 0 Nausea and/or vomitting:: None Intake, IV Amount: 0
--- NOTE | 2021-04-05 10:12 | SW/DCPLANNER ---
Addendum entered by Jerrica [employer] 04/08/21 09:51: Per Noris Esparza this patient has been accepted for admission today. Noris has stated that patient does NOT require additional COVID testing. Patient is agreeable with plan. Patient will discharge today. Addendum entered by Jerrica [employer] 04/07/21 11:28: Noris Esparza has stated that precert was started yesterday and she is currently waiting for approval. Addendum entered by Jerrica [employer] 04/06/21 12:31: Noris lee/ [facility] has stated that she has started pre-cert on this patient. Addendum entered by Jerrica [employer] 04/05/21 12:27: Noris Esparza is currently reviewing patient information. Original Note: I spoke with this patient during rounds this AM. Patient has expressed an interested in [facility] at time of discharge. Patient information has been faxed to [facility]. I will follow up once patient information is reviewed. Discharge date is unknown at this time.
--- NOTE | 2021-04-05 12:51 | HMH.ACPN2 ---
Internal Medicine - PN: Subj *Date: 04/05/21 *Time: 08:30 Interval history: pt states she had a good night. pt states she is frighten to go home. lives alone Exam Vital signs and Labs for Last 24 Hours: Temp Pulse Resp BP Pulse Ox 98.3 F 74 18 111/40 L 91 L 04/05/21 07:52 04/05/21 07:52 04/05/21 07:52 04/05/21 07:52 04/05/21 07:52 Laboratory Results - last 24 hr 04/05/21 05:25: WBC 9.5, RBC 3.82 L, Hgb 11.3 L, Hct 35.6 L, MCV 93.1, MCH 29.6, MCHC 31.8, RDW 14.6, Plt Count 149, MPV 9.6, Neut % (Auto) 81.5 H, Lymph % (Auto) 11.7, [place] % (Auto) 6.6, Eos % (Auto) 0.0 L, Baso % (Auto) 0.1, Neut # (Auto) 7.7, Lymph # (Auto) 1.1, [place] # (Auto) 0.6, Eos # (Auto) 0.0, Baso # (Auto) 0.0 04/05/21 05:25: Sodium 139, Potassium 4.4, Chloride 105, Carbon Dioxide 28, Anion Gap 10.4, BUN 26 H, Creatinine 1.00 D, Estimated Creat Clear 83, Estimated GFR 54 L, Est GFR ( Amer) 66 D, Glucose 124 H, Calcium 8.6, Total Bilirubin 0.2, AST 24, ALT 16, Alkaline Phosphatase 94, Total Protein 5.9 L, Albumin 3.3 L D, Globulin 2.6, Albumin/Globulin Ratio 1.3 I & O for Last 24 hours: Intake & Output 04/03/21 04/04/21 04/05/21 04/06/21 11:59 11:59 11:59 11:59 Intake Total 800 / 800 960 / 960 Balance 800 / 800 960 / 960 Weight 232 lb 4.817 oz 236 lb - Constitutional no acute distress - *Routine HEENT Exam Head: Present: normocephalic Eye: Present: PERRL ENT: Present: mucous membranes moist - *Routine Neck Exam Present: supple. Absent: lymphadenopathy - *Routine Respiratory Exam Present: CTA bilaterally - *Routine Cardiovascular Exam Present: RRR - *Routine Abdominal Exam Present: soft, normoactive bowel sounds. Absent: tenderness - *Routine Extremities Exam Absent: cyanosis, clubbing, edema - *Routine Skin Exam Present: warm. Absent: rash Comments: dressing in place rt hip - *Routine Neurological Exam Present: alert, oriented X3 Assessment and Plan (1) Right femoral fracture Status: Acute Qualifiers: Encounter type: initial encounter Femur location: shaft Fracture type: closed Fracture morphology: transverse Fracture alignment: nondisplaced Qualified Code(s): S72.324A - Nondisplaced transverse fracture of shaft of right femur, initial encounter for closed fracture Category: Medical Code(s): S72.91XA - Unspecified fracture of right femur, initial encounter for closed fracture (2) COPD (chronic obstructive pulmonary disease) Status: Chronic Category: Medical Code(s): J44.9 - Chronic obstructive pulmonary disease, unspecified (3) Lung mass Status: Chronic Category: Medical Code(s): R91.8 - Other nonspecific abnormal finding of lung field - Assessment and plan all Dx Assessment and Plan for all problems:: rounded with dr hawk all orders per dr hawk pt/ot improved cre pt states she has f/u appointments in [place] on lung mass
--- NOTE | 2021-04-05 14:36 | HMH.OTEV ---
OT Inpatient Evaluation Rehab OT IP Evaluation Start: 04/05/21 10:16 Freq: ONCE Status: Complete Protocol: Document 04/05/21 14:29 [facility] (Rec: 04/05/21 14:35 [facility] [id number]) Rehab OT IP Assessment Subjective History Pt oriented x 3 on arrival. Pt was admitted on 04/03/21 via ED due to fall resulting a femur fx. Pt has a past medical history of Cancer ( Uterine) and Hypertension. Pt required a R femur cephalomedullary nail fixation on 04/04/21. Pt reports prior to her fall she lived at home alone. Pt claims she was independent with all ADLs and IADLs. She did not require AE during ambulation. She wore o2 at night. She still drove. Subjective I need therapy after this. Objective Patient Orientation Person,Place,Birthday Upper Extremity Gross ROM WFL Bed Mobility bed mobility-scooting,bed mobility - supine/sit,bed mobility - rolling Assist Level Minimal x 1 (25% assist) Transfer Training Sit/Stand Transfer Assist Level Minimal x 2 (25% assist) Rehab OT IP prob,goals,plan Problems Date of Evaluation: 04/05/21 OT IP Problems Bed Mobility,Transfers,Gait, Balance,Self care,Safety Rehab Potential Rehab Potential Good Equipment Needs Assistive Devices Rolling / Wheeled Walker Plan OT intervention Plan Bed Mobility,Transfers,Gait, Balance,Self care,Safety, Therapeutic Exercise OT Plan Frequency BID Duration LOS Discharge Goals Bed Mobility Ability Standby Assistance Sit to Stand Chair Transfer Ability Contact Guard/Hand Hold Chair Transfer Ability Contact Guard/Hand Hold Chair Transfer Technique Sit to/from Ambulatory Chair Transfer Assistive Devices Rolling Walker Feeding Ability Assist with Tray Set Up Lower Body Dressing Ability Assistance X1 Upper Body Dressing Ability Standby Assistance Bathing Ability Assistance x1 Performing Toilet Hygiene Ability Assistance X1 Overall Commode/Toilet Transfer Ability Standby Assistance Commode/Toilet Transfer Technique Sit to/from Ambulatory Discharge Plan OT Discharge Plan Pt
[2021-04-06] VITALS (9 sets, daily range): BP systolic 105–132; BP diastolic 51–62; PULSE 65–79; RESP 15–18; TEMP 36.6–37.3; O2SAT 89–100; BMI 39.3
[2021-04-06 06:36] LABS: Chloride 106 mmol/L (98-107)
[2021-04-06 06:37] LABS: Potassium 4.1 mmoL/L (3.5-5.1); Sodium 139 mmol/L (136-145)
[2021-04-06 06:40] LABS: Anion Gap 9.1 mEq/L (5-15); Blood Urea Nitrogen 23 mg/dl (7-17); Calcium 8.6 mg/dl (8.4-10.2); Carbon Dioxide 28 mmol/L (22.0-30.0); Creatinine Clearance Estimated 83 mL/min (50-200); Estimated Glomerular Filt Rate 61 ml/min (>60); GFR (African American) 74 ML/MIN (>60); Glucose 101 mg/dl (74-100)
[2021-04-06 06:41] LABS: Basophils % 0.4 % (0.1-2.0); Eosinophils # 0.2 K/mm3 (0.0-0.4); Eosinophils % 1.9 % (0.1-12.0); Hematocrit 33.1 % (37.0-47.0); Hemoglobin 10.6 g/dL (12.2-16.2); Lymphocytes # 1.8 K/mm3 (0.7-4.5); Lymphocytes % 21.3 % (10-50); Mean Corpuscular Hemoglobin 29.8 pg (27.0-31.2); Mean Corpuscular Volume 93.2 fl (81-99); Mean Platelet Volume 9.3 fl (7.4-10.4); Monocytes # 0.6 K/mm3 (0.1-1.0); Monocytes % 7.5 % (1.7-9.3); Neutrophils # 5.8 K/mm3 (1.8-7.8); Neutrophils % 68.9 % (37.0-80.0); Platelet Count 144 K/mm3 (142-424); Red Blood Count 3.55 M/mm3 (4.20-5.40); White Blood Count 8.5 K/mm3 (4.8-10.8)
--- NOTE | 2021-04-06 13:30 | HMH.ACPN2 ---
Internal Medicine - PN: Subj *Date: 04/07/21 *Time: 05:27 Interval history: pt with doing better- sitting up Exam Vital signs and Labs for Last 24 Hours: Temp Pulse Resp BP Pulse Ox 98.8 F 65 15 112/52 L 96 04/06/21 12:00 04/06/21 12:48 04/06/21 12:00 04/06/21 12:00 04/06/21 12:48 Laboratory Results - last 24 hr 04/06/21 05:48: WBC 8.5, RBC 3.55 L, Hgb 10.6 L, Hct 33.1 L, MCV 93.2, MCH 29.8, MCHC 32.0, RDW 15.0, Plt Count 144, MPV 9.3, Neut % (Auto) 68.9, Lymph % (Auto) 21.3, [place] % (Auto) 7.5, Eos % (Auto) 1.9, Baso % (Auto) 0.4, Neut # (Auto) 5.8, Lymph # (Auto) 1.8, [place] # (Auto) 0.6, Eos # (Auto) 0.2, Baso # (Auto) 0.0 04/06/21 05:48: Sodium 139, Potassium 4.1, Chloride 106, Carbon Dioxide 28, Anion Gap 9.1, BUN 23 H, Creatinine 0.90, Estimated Creat Clear 83, Estimated GFR 61, Est GFR ( Amer) 74, Glucose 101 H, Calcium 8.6 I & O for Last 24 hours: Intake & Output 04/04/21 04/05/21 04/06/21 04/07/21 11:59 11:59 11:59 11:59 Intake Total 800 / 800 960 / 960 1200 / 1200 Balance 800 / 800 960 / 960 1200 / 1200 Weight 232 lb 4.817 oz 236 lb 235 lb 15.831 oz - Constitutional no acute distress, obese - *Routine HEENT Exam Head: Present: normocephalic Eye: Present: EOMI, PERRL ENT: Present: mucous membranes dry - *Routine Neck Exam Present: supple - *Routine Respiratory Exam Present: CTA bilaterally - *Routine Cardiovascular Exam Present: RRR - *Routine Abdominal Exam Present: soft - *Routine Extremities Exam Absent: calf tenderness - *Routine Skin Exam Present: intact - *Routine Neurological Exam Present: alert, CN II-XII intact - Routine Psychiatric Exam Present: cooperative Assessment and Plan (1) Right femoral fracture Status: Acute Qualifiers: Encounter type: initial encounter Femur location: shaft Fracture type: closed Fracture morphology: transverse Fracture alignment: nondisplaced Qualified Code(s): S72.324A - Nondisplaced transverse fracture of shaft of right femur, initial encounter for closed fracture Category: Medical Code(s): S72.91XA - Unspecified fracture of right femur, initial encounter for closed fracture (2) COPD (chronic obstructive pulmonary disease) Status: Chronic Category: Medical Code(s): J44.9 - Chronic obstructive pulmonary disease, unspecified (3) Lung mass Status: Chronic Category: Medical Code(s): R91.8 - Other nonspecific abnormal finding of lung field (4) Obesity (BMI 30-39.9) Status: Acute Category: Medical Code(s): E66.9 - Obesity, unspecified
--- NOTE | 2021-04-06 19:28 | PC.NURSE ---
no acute events throughout shift. RN ambulated patient q4 and with meals. RN had patient ambulate to bedside commode versus bedpan. No further orders at this time for the patient. Will continue to monitor
[2021-04-07] VITALS (10 sets, daily range): BP systolic 94–129; BP diastolic 56–70; PULSE 66–74; RESP 16–22; TEMP 36.6–37.3; O2SAT 88–99; BMI 39.3
--- NOTE | 2021-04-07 12:40 | HMH.ACPN2 ---
Internal Medicine - PN: Subj *Date: 04/07/21 *Time: 08:00 Interval history: pt states she had a good night Exam Vital signs and Labs for Last 24 Hours: Temp Pulse Resp BP Pulse Ox 98.6 F 68 18 94/62 L 93 L 04/07/21 12:00 04/07/21 12:00 04/07/21 12:00 04/07/21 12:00 04/07/21 12:00 I & O for Last 24 hours: Intake & Output 04/05/21 04/06/21 04/07/21 04/08/21 11:59 11:59 11:59 11:59 Intake Total 960 / 960 1200 / 1200 2940 / 2940 Output Total 1650 / 1650 Balance 960 / 960 1200 / 1200 1290 / 1290 Weight 236 lb 235 lb 15.831 oz 236 lb 4.8 oz - Constitutional no acute distress - *Routine HEENT Exam Head: Present: normocephalic Eye: Present: PERRL ENT: Present: mucous membranes moist - *Routine Neck Exam Present: supple. Absent: lymphadenopathy - *Routine Respiratory Exam Present: CTA bilaterally - *Routine Cardiovascular Exam Present: RRR - *Routine Abdominal Exam Present: soft, normoactive bowel sounds. Absent: tenderness - *Routine Extremities Exam Absent: cyanosis, clubbing, edema Comments: dressing c/d/i - *Routine Skin Exam Present: warm. Absent: rash - *Routine Neurological Exam Present: alert, oriented X3 Assessment and Plan (1) Right femoral fracture Status: Acute Qualifiers: Encounter type: initial encounter Femur location: shaft Fracture type: closed Fracture morphology: transverse Fracture alignment: nondisplaced Qualified Code(s): S72.324A - Nondisplaced transverse fracture of shaft of right femur, initial encounter for closed fracture Category: Medical Code(s): S72.91XA - Unspecified fracture of right femur, initial encounter for closed fracture (2) COPD (chronic obstructive pulmonary disease) Status: Chronic Category: Medical Code(s): J44.9 - Chronic obstructive pulmonary disease, unspecified (3) Lung mass Status: Chronic Category: Medical Code(s): R91.8 - Other nonspecific abnormal finding of lung field (4) Obesity (BMI 30-39.9) Status: Acute Category: Medical Code(s): E66.9 - Obesity, unspecified - Assessment and plan all Dx Assessment and Plan for all problems:: rounded with dr gilliam all orders per dr gilliam waiting on bed at [facility]
[2021-04-08] VITALS: O2SAT 93
--- NOTE | 2021-04-08 03:08 | PC.NURSE ---
A&OX4. PT WEARING 2LNC WHILE SLEEPING. PT HAS NOT HAD ANY C/O THUS FAR THIS SHIFT. TURNING WELL IN BED FOR BEDPAN USE. DRESSING TO R HIP CDI. PT SLEEPING MAJORITY OF SHIFT. VSS WILL CONTINUE TO MONITOR.
[2021-04-08 04:00] VITALS: BP 101/50; PULSE 59; RESP 18; TEMP 36.7; O2SAT 93
[2021-04-08 04:58] VITALS: BMI 38.3
[2021-04-08 06:16] LABS: Chloride 102 mmol/L (98-107); Potassium 4.4 mmoL/L (3.5-5.1); Sodium 138 mmol/L (136-145)
[2021-04-08 06:19] LABS: Anion Gap 9.4 mEq/L (5-15); Blood Urea Nitrogen 19 mg/dl (7-17); Calcium 8.4 mg/dl (8.4-10.2); Carbon Dioxide 31 mmol/L (22.0-30.0); Creatinine Clearance Estimated 81 mL/min (50-200); Estimated Glomerular Filt Rate 54 ml/min (>60); GFR (African American) 66 ML/MIN (>60); Glucose 102 mg/dl (74-100)
[2021-04-08 06:20] VITALS: PULSE 57; O2SAT 99
[2021-04-08 07:19] LABS: Basophils % 0.5 % (0.1-2.0); Eosinophils # 0.3 K/mm3 (0.0-0.4); Eosinophils % 3.7 % (0.1-12.0); Hemoglobin 10.3 g/dL (12.2-16.2); Lymphocytes % 29.9 % (10-50); Mean Corpuscular HGB Conc 31.3 g/dL (31.8-35.4); Mean Corpuscular Hemoglobin 29.8 pg (27.0-31.2); Mean Platelet Volume 9.5 fl (7.4-10.4); Monocytes # 0.4 K/mm3 (0.1-1.0); Monocytes % 6.3 % (1.7-9.3); Neutrophils % 59.5 % (37.0-80.0); Platelet Count 132 K/mm3 (142-424); Red Blood Count 3.47 M/mm3 (4.20-5.40); Red Cell Distribution Width 14.9 % (11.5-17.5); White Blood Count 6.7 K/mm3 (4.8-10.8)
[2021-04-08 08:00] VITALS: BP 109/54; PULSE 70; RESP 20; TEMP 36.6; O2SAT 91
--- NOTE | 2021-04-08 09:24 | [facility].DCSUM ---
General - General Admission date:: 04/04/21 Discharge date: 04/08/21 HPI HPI: Patient is a very pleasant 75-year-old white female who was admitted through the emergency room last night. She was a guest at a wedding, stained a fall with a fracture to her right femur. 75-year-old female with no history of antecedent hip pain, fever, constitutional symptoms, or weight change, fell down 2 stairs, complained of right hip pain and difficulty ambulating. Radiographs and subsequent CT scan demonstrated minimally displaced intertrochanteric femur fracture with extension distal to the lesser trochanter and the lateral cortex. There were no lucent lesions apparent on CT scan. She was admitted, made n.p.o. 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 Patient went to the operating room earlier this morning. Op note is reviewed. Has satisfactory analgesia and normal mentation. 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 She is having no respiratory symptoms, no chest pain. Hospital Course Hospital Course: Laboratory Tests 04/03/21 04/03/21 04/03/21 23:24 23:24 23:24 WBC 10.9 H RBC 4.47 Hgb 13.1 Hct 41.9 MCV 93.7 MCH 29.2 MCHC 31.2 L RDW 14.5 Plt Count 173 MPV 9.4 Neut % (Auto) 74.3 Lymph % (Auto) 19.1 [place] % (Auto) 5.6 Eos % (Auto) 0.6 Baso % (Auto) 0.5 Neut # (Auto) 8.1 H Lymph # (Auto) 2.1 [place] # (Auto) 0.6 Eos # (Auto) 0.1 Baso # (Auto) 0.1 PT 10.7 INR 0.94 APTT 28.7 Sodium 139 Potassium 4.0 Chloride 103 Carbon Dioxide 30 Anion Gap 10.0 BUN 25 H Creatinine 1.60 H Estimated Creat Clear 51 Estimated GFR 32 L Est GFR ( Amer) 38 L Glucose 99 Calcium 8.5 Total Bilirubin 0.3 AST 26 ALT 19 Alkaline Phosphatase 115 Total Protein 6.7 Albumin 3.7 Globulin 3.0 Albumin/Globulin Ratio 1.2 SARS-CoV-2 (PCR) Influenza A Untype (PCR) Influenza Type B (PCR) 04/03/21 04/05/21 04/05/21 23:24 05:25 05:25 WBC 9.5 RBC 3.82 L Hgb 11.3 L Hct 35.6 L MCV 93.1 MCH 29.6 MCHC 31.8 RDW 14.6 Plt Count 149 MPV 9.6 Neut % (Auto) 81.5 H Lymph % (Auto) 11.7 [place] % (Auto) 6.6 Eos % (Auto) 0.0 L Baso % (Auto) 0.1 Neut # (Auto) 7.7 Lymph # (Auto) 1.1 [place] # (Auto) 0.6 Eos # (Auto) 0.0 Baso # (Auto) 0.0 PT INR APTT Sodium 139 Potassium 4.4 Chloride 105 Carbon Dioxide 28 Anion Gap 10.4 BUN 26 H Creatinine 1.00 D Estimated Creat Clear 83 Estimated GFR 54 L Est GFR ( Amer) 66 D Glucose 124 H Calcium 8.6 Total Bilirubin 0.2 AST 24 ALT 16 Alkaline Phosphatase 94 Total Protein 5.9 L Albumin 3.3 L D Globulin 2.6 Albumin/Globulin Ratio 1.3 SARS-CoV-2 (PCR) Not detected Influenza A Untype (PCR) Not detected Influenza Type B (PCR) Not detected 04/06/21 04/06/21 04/08/21 05:48 05:48 05:45 WBC 8.5 6.7 RBC 3.55 L 3.47 L Hgb 10.6 L 10.3 L Hct 33.1 L 33.0 L MCV 93.2 95.0 MCH 29.8 29.8 MCHC 32.0 31.3 L RDW 15.0 14.9 Plt Count 144 132 L MPV 9.3 9.5 Neut % (Auto) 68.9 59.5 Lymph % (Auto) 21.3 29.9 [place] % (Auto) 7.5 6.3 Eos % (Auto) 1.9 3.7 Baso % (Auto) 0.4 0.5 Neut # (Auto) 5.8 4.0 Lymph # (Auto) 1.8 2.0 [place] # (Auto) 0.6 0.4 Eos # (Auto) 0.2 0.3 Baso # (Auto) 0.0 0.0 PT INR APTT Sodium 139 Potassium 4.1 Chloride 106 Carbon Dioxide 28 Anion Gap 9.1 BUN 23 H Creatinine 0.90 Estimated Creat Clear 83 Estimated GFR 61 Est GFR ( Amer) 74
--- NOTE | 2021-04-08 10:53 | PC.NURSE ---
Patient ready for discharge to [facility] today.
[2021-04-08 11:40] VITALS: PULSE 64
[2021-04-08 12:00] VITALS: BP 103/64; PULSE 65; RESP 18; TEMP 37; O2SAT 90
== END 2021-04-08 14:40 ==
LOC: ER 22:21 → 2ND 04-04 00:43
PROVIDERS: Nurse Practitioner Family; Orthopaedic Surgery; Admitting Provider Family Medicine; Emergency Provider Emergency Medicine; PCP Family Medicine; Visit Provider Family Medicine
DX: S72.144A Nondisplaced intertrochanteric fracture of right femur, initial encounter for closed fracture (principal); F17.210 Nicotine dependence, cigarettes, uncomplicated; Z79.899 Other long term (current) drug therapy; Z88.8 Allergy status to other drugs, medicaments and biological substances; Z20.822 Contact with and (suspected) exposure to COVID-19; W10.9XXA Fall (on) (from) unspecified stairs and steps, initial encounter; Y92.89 Other specified places as the place of occurrence of the external cause; J44.9 Chronic obstructive pulmonary disease, unspecified; I10 Essential (primary) hypertension; Z85.42 Personal history of malignant neoplasm of other parts of uterus
CPT/HCPCS: 27245; G0378; 36415; 71045; 72170; 73502; 73552; 73700; 76000; 80048; 80053; 85025; 85610; 85730; 88305; 88311; 93005; 94640; 94761; 96374; 96375; 96376; 97110; 97161; 97166; 97530; 99284; C1713; C1769; C9803; J0131; J2405; U0003; U0005